=== PATIENT | male | born 1955 | race Caucasian/White ===

== ENCOUNTER → 2020-11-04 14:10 | Outpatient (CLI) | payer OTHER, SELFPAY ==
--- NOTE | 2020-11-04 | DI.US.S_ITS ---
PROCEDURE: US ABD AORTA ANEURYSM SCREEN INDICATIONS: Encounter for other specified special examinations. Aneurysm screening. TECHNIQUE: Real time scanning was performed of the aorta and iliac arteries, with image documentation. COMPARISON: None. FINDINGS: Aorta: Proximal aortic diameter measures 2.4 cm. Mid-aorta measures 2.8 cm. There is a distal abdominal aortic aneurysm seen that measures 6.6 cm AP by 5.5 cm transversely, with a craniocaudal extent of 6.5 cm. 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 Turbulent flow can be seen within the aneurysm. The left common iliac artery measures 1 cm. The postvoid residual is 425 cc. IMPRESSION: Distal abdominal aortic aneurysm measuring 6.6 cm AP. A vascular surgery consultation and CT angiogram are now recommended for further evaluation. An aneurysm is also seen involving the right common iliac artery. Urinary retention, with a postvoid residual of 425 cc. Dictated by: Jay Kothari M.D. on 11/04/2020 at 15:41 Approved by: Jay Kothari M.D. on 11/04/2020 at 15:43
== END ==
PROVIDERS: PCP Internal Medicine; Referring Provider Internal Medicine; Visit Provider Internal Medicine
DX: Z13.6 Encounter for screening for cardiovascular disorders (principal); I71.4 Abdominal aortic aneurysm, without rupture; I72.3 Aneurysm of iliac artery; R33.9 Retention of urine, unspecified
CPT/HCPCS: 76706

== ENCOUNTER → 2023-03-10 12:40 | Outpatient (CLI) | payer OTHER, SELFPAY ==
--- NOTE | 2023-03-10 | DI.CT.S_ITS ---
PROCEDURE: CT ABDOMEN PELVIS WO CON INDICATIONS: Abdominal aortic aneurysm, without rupture TECHNIQUE: Noncontrast 5 mm thick sections acquired from the diaphragms to the symphysis. 5 mm coronal and sagittal reformats were then performed. For radiation dose reduction, the following was used: automated exposure control, adjustment of mA and/or kV according to patient size. COMPARISON: [facility], CT, CT ANGIO CHEST ABDOMEN PELVIS, 04/25/2022, 20:35. [facility], CR, XR CHEST 1 VIEW, 04/25/2022, 19:31. FINDINGS: Image quality: Excellent considering absence of both oral and intravenous contrast ABDOMEN: Lung bases: Lung bases are clear. Heart size is normal. Solid organs: Liver is normal in size. Gallbladder is free of distension or calcified gallstones . Pancreas is normal in contours. Spleen is normal in size. No adrenal nodules. Kidneys are normal in size, without hydronephrosis or nephrolithiasis. Peritoneum and bowel: Unenhanced bowel loops demonstrate normal wall thickness and caliber. No free fluid or air. Nodes and vessels: No retroperitoneal or mesenteric adenopathy by size criteria. Aorta and inferior vena cava are normal in caliber in the suprarenal area, and below the renal arteries again noted is postprocedural change of an aortic endo stent extending to the common iliac arteries bilaterally. No change in morphology of the aneurysm sac is noted, no sign of perianeurysmal fibrosis or aneurysm leak.. Miscellaneous: No ventral hernias. PELVIS: Genitourinary: Bladder wall thickness is normal considering relatively prominent bladder volume, previously the case. Miscellaneous: No inguinal hernias or adenopathy. Bones: No suspicious bony lesions. No vertebral body compression fractures. IMPRESSION: Prior aorto bi-iliac artery endo stent placement without cell changer time that would suggest endo stent leak. Again noted is prominence of the bladder volume, also present on the comparison study from 04/25/22. No urinary tract stone is seen. Dictated by: Davon Sharma M.D. on 03/10/2023 at 13:58 Approved by: Davon Sharma M.D. on 03/10/2023 at 14:04
== END ==
PROVIDERS: PCP Internal Medicine; Referring Provider Internal Medicine; Visit Provider Internal Medicine
DX: I71.40 Abdominal aortic aneurysm, without rupture, unspecified (principal)
CPT/HCPCS: 74176

== ENCOUNTER 2023-08-24 15:26 | Emergency (ER) | payer OTHER, SELFPAY ==
[2023-08-24] VITALS (8 sets, daily range): BP systolic 114–144; BP diastolic 68–82; PULSE 81–94; RESP 15–22; TEMP 37.2; O2SAT 93–98; BMI 31.1
--- NOTE | 2023-08-24 15:56 | ED.NEUROSD ---
HPI - Neuro Symptoms/Deficit General Chief Complaint: Neuro Symptoms/Deficit Stated Complaint: legs are numb Time Seen by Provider: 08/24/23 15:44 Source: patient Mode of arrival: Ambulatory History of Present Illness HPI Narrative: Patient is a 68-year-old male. Does have history of AAA status post repair. Is here for evaluation of transient issues were both of his legs go numb. He states it happened several times a week. Has been going on for the past 3-4 months. He talked with his primary care doctor's office and he was told that if he ever had the symptoms again that he should come to the emergency department. He states that sometimes it will happen when he stands up from sitting. It did happened today. Lasted several minutes and then resolved on its own. He currently does not have any symptoms. No change in his bladder symptoms. He has no belly pain. No change in bowel habits. On Anticoagulants: No Related Data Home Medications Medication Instructions Recorded Confirmed alfuzosin 10 mg tablet,extended 10 mg PO QDAY ##0 06/03/16 release 24 hr chlorthalidone 25 mg tablet 25 mg PO QDAY ##0 06/03/16 cholecalciferol (vitamin D3) 25 1,000 unit PO QDAY ##0 06/03/16 mcg (1,000 unit) tablet (Vitamin D3) multivitamin (Multiple Vitamins 1 tab PO QDAY ##0 06/03/16 tablet) omeprazole magnesium 20 mg 20 mg PO ##0 06/03/16 tablet,delayed release (Prilosec OTC) sildenafil 50 mg tablet (Viagra) 50 mg PO PRN PRN ##0 06/03/16 Allergies Allergy/AdvReac Type Severity Reaction Status Date / Time amoxicillin [AMOXICILLIN] Allergy Unknown Verified 08/24/23 15:39 ampicillin [AMPICILLIN] Allergy Unknown Verified 08/24/23 15:39 aspirin [ASPIRIN] Allergy Unknown Verified 08/24/23 15:39 NSAIDS (Non-Steroidal Allergy Unknown Verified 08/24/23 15:39 Anti-Inflamma [NSAIDS (NON-STEROIDAL ANTI-INFLAMMA] Penicillins [PENICILLINS] Allergy Unknown Verified 08/24/23 15:39 Review of Systems Constitutional Constitutional: Reports system reviewed and no additional complaints, except as documented Gastrointestinal Gastrointestinal: Reports system reviewed and no additional complaints, except as documented Genitourinary Genitourinary: Reports system reviewed and no additional complaints, except as documented Musculoskeletal Musculoskeletal: Reports system reviewed and no additional complaints, except as documented Integumentary/Breasts Skin/Breast: Reports system reviewed and no additional complaints, except as documented Neurologic Neurologic: Reports system reviewed and no additional complaints, except as documented Hematologic/Lymphatic On Anticoagulants: No Patient History Surgical History (Updated 10/10/17 @ 05:36 by Conversion Provider) Status post hernia repair History of carpal tunnel repair Social History Smoking Status: Former smoker Smoking Status: Former smoker alcohol intake frequency: holidays/special occasions only Substance Use Type: does not use Exam Initial Vital Signs Initial Vital Signs: Vital Signs Temperature 99.0 F 08/24/23 15:30 Pulse Rate 93 H 08/24/23 15:30 Respiratory Rate 15 08/24/23 15:30 Blood Pressure 133/82 08/24/23 15:30 Pulse Oximetry 98 08/24/23 15:30 Oxygen Delivery Method Room Air 08/24/23 15:30 HENMT Head: normal to inspection and normocephalic Resp Effort & Inspection: normal respiratory effort Cardio Rate: regular rate GI Inspection: normal to inspection and non-distended Skin General: no rashes or lesions noted Neuro General: patient alert and patient awake Extrem General: normal to inspection Course Orders Ordered: ED Orders 08/24/23 15:41 Complete Blood Count AUTO DIFF Stat Comprehensive Metabolic Panel Stat Lipase Stat 08/24/23 15:56 CT angio abd aorta runoff Stat Vital Signs Vital signs: Vital Signs - 8 hr 08/24/23 15:30 08/24/23 15:35 08/24/23 15:36 Temperature 99.0 F Pulse Rate 93 H 94 H Respiratory Rate 15 Blood Pressure 133/82 133/82 Pulse Oximetry 98 98 Oxygen Delivery Method Room Air 08/24/23 15:36 08/24/23 16:00 08/24/23 16:00 Temperature Pulse Rate 87 90 Respiratory Rate 15 Blood Pressure 119/75 Pulse Oximetry 97 94 Oxygen Delivery Method 08/24/23 16:30 08/24/23 16:30 Temperature Pulse Rate 83 Respiratory Rate 17 Blood Pressure 114/68 Pulse Oximetry 93 Oxygen Delivery Method Room Air MDM - Neuro Symptoms/Deficit Lab Data Attestation: I reviewed the patient's lab results. 08/24/23 15:41 03/14/24 15:41 Labs: Lab Results 08/24/23 Range/Units 15:41 WBC 6.5 (4.5-11.0) X10^3/uL RBC 4.16 L (4.5-5.9) X10^6/uL Hgb 11.6 L (13.5-17.5) g/dL Hct 33.7 L (41-53) % MCV 81.1 (80-100) fL MCH 27.9 (26-34) PG MCHC 34.4 (30-36) % RDW 15.6 H (11.6-14.8) % Plt Count 218 (150-400) X10^3/uL Neut % (Auto) 63.4 (50-75) % Lymph % (Auto) 17.9 L (25-40) % [place] % (Auto) 17.6 H (3-14) % Eos % (Auto) 0.8 L (2-4) % Baso % (Auto) 0.3 (0-2) % Neut # (Auto) 4100 (9805-7706) /uL Lymph # (Auto) 1200 (6573-2294) /uL [place] # (Auto) 1100 H (0-900) /uL Eos # (Auto) 100 (0-450) /uL Baso # (Auto) 0 (0-100) /uL Sodium 138 (137-145) mmol/L Potassium 3.5 (3.4-5.1) mmol/L Chloride 106 (98-107) mmol/L Carbon Dioxide 26 (22-32) mmol/L BUN 20 (9-20) mg/dL Creatinine 0.95 (0.66-1.25) mg/dL Estimated GFR > 60 (>60) mL/min BUN/Creatinine Ratio 21.1 (6-22) Glucose 126 H (80-110) mg/dL Calcium 9.4 (8.4-10.2) mg/dL Total Bilirubin 0.5 (0.2-1.3) mg/dL AST 24 (17-59) IU/L ALT 22 (<50) IU/L Alkaline Phosphatase 82 (38-126) U/L Total Protein 8.5 H (6.3-8.2) g/dL Albumin 3.8 (3.5-5.0) g/dL Globulin 4.7 H (1.7-4.1) g/dL Albumin/Globulin Ratio 0.8 L (1.0-2.8) Lipase 44 (23-300) U/L Imaging Data CT scan - abdomen/pelvis: Radiologist's Impression: PROCEDURE: CT ANGIO ABD AORTA RUNOFF INDICATIONS: hx of AAA with repair now with leg numbness TECHNIQUE: After the administration of intravenous contrast, 2.5 mm sections acquired from T12 to the feet, with optional delayed image acquisition from the knees to the feet. 3-dimensional maximum intensity projection (MIP) coronal and sagittal reformats, and/or 3-dimensional volume rendering reformatting was then performed. For radiation dose reduction, the following was used: automated exposure control. COMPARISON: [facility], CT, CT ANGIO CHEST ABDOMEN PELVIS, 04/25/2022, 20:35. FINDINGS: Image Quality: Suboptimal due to motion artifact. Abdominal aorta: Infrarenal aortic stent, without evidence endoleak (although evaluation is not optimally tailored for endoleak detection). The aortic sac measures 4.3 centimeters, previously 5.0 centimeters in 2021. Splanchnic vessels: Patent without hemodynamically significant stenosis. Right lower extremity: No hemodynamically significant stenosis. Three-vessel runoff. Left lower extremity: No hemodynamically significant stenosis. Three-vessel runoff. Lower Chest: No significant findings. ABDOMEN: Liver: No solid mass. Gallbladder: No radiopaque gallstones or wall thickening. Biliary ducts: No biliary dilation. Pancreas: No ductal dilation. Spleen: Size is within normal limits. Adrenal Glands: No adrenal nodules. Kidneys and Ureters: No hydronephrosis. No solid mass. No complex renal cystic lesion which requires follow up. Stomach and Bowel: Normal colonic caliber, without significant wall thickening. Colonic diverticulosis without evidence of diverticulitis. Peritoneum: No abnormal intraperitoneal fluid. No free air. Ventral Wall: No hernia. Abdominal Nodes: No retroperitoneal or mesenteric adenopathy by size criteria. Vessels: Aorta and inferior vena cava are normal in size. PELVIS: Pelvic Organs: Prostatectomy. Bladder: Significant distension of the urinary bladder. Pelvic Nodes: No enlarged lymph nodes. Miscellaneous: No inguinal hernias are seen. Bones: No aggressive osseous abnormality. Degenerative disc disease. IMPRESSION: Prior EVAR, without complication. No evidence of endoleak. Interval decrease in size of the excluded aortic aneurysm compared with 2021. No hemodynamically significant stenosis of the lower extremities, with three-vessel runoff. Significant distension of the bladder. Urinary bladder retention is a consideration. Prostatectomy. MDM Narrative Medical decision making narrative: Patient is currently asymptomatic. CT scan today shows no acute issues with his AAA or repair. He does have a distended bladder on the CT scan. He states that he frequently will retain urine and then have a large episode of urinating. He does still self cath himself every couple days. Advised that if he does not urinate quite a bit this evening that he should self catheterization. Will discharge home to have him follow-up with primary doctor. He was given return precautions. He expressed understanding and agreement. Discharge Plan Departure Patient Disposition: Home Clinical Impression: Paresthesias Activity Restrictions/Additional Instructions: Recommend that you continue to take all of your medications as directed. Also contact your primary care doctor for a follow-up. Your bladder on the CT scan today does look like it is full of urine. If you do not completely empty her bladder this evening I do recommend that you self catheterization this evening. Return to the emergency department for new symptoms. Prescriptions: No Action chlorthalidone 25 MG tablet 25 mg PO QDAY Qty: 0 sildenafil [Viagra] 50 MG tablet 50 mg PO PRN PRNQty: 0 omeprazole magnesium [Prilosec OTC] 20 MG tablet,delayed release (DR/EC) 20 mg PO Qty: 0 alfuzosin 10 MG tablet extended release 24 hr 10 mg PO QDAY Qty: 0 cholecalciferol (vitamin D3) [Vitamin D3] 1,000 UNIT tablet 1,000 unit PO QDAY Qty: 0 multivitamin [Multiple Vitamins] 1 EACH tablet 1 tab PO QDAY Qty: 0 Referrals: Jolie Helton MD [Primary Care Provider] - Stand Alone Forms: Patient Portal/API
[2023-08-24 16:03] LABS: Add Manual Diff / Slide Review NO; Basophils Absolute Auto 0 /uL (0-100); Basophils Percent Auto 0.3 % (0-2); Eosinophils Absolute Auto 100 /uL (0-450); Eosinophils Percent Auto 0.8 % (2-4); Hematocrit 33.7 % (41-53); Hemoglobin 11.6 g/dL (13.5-17.5); Lymphocytes Absolute Auto 1200 /uL (1100-4500); Lymphocytes Percent Auto 17.9 % (25-40); Mean Corpuscular HGB Conc 34.4 % (30-36); Mean Corpuscular Hemoglobin 27.9 PG (26-34); Mean Corpuscular Volume 81.1 fL (80-100); Monocytes Absolute Auto 1100 /uL (0-900); Monocytes Percent Auto 17.6 % (3-14); Neutrophils Absolute Auto 4100 /uL (1500-7000); Neutrophils Percent Auto 63.4 % (50-75); Platelet Count 218 X10^3/uL (150-400); Red Blood Cell Count 4.16 X10^6/uL (4.5-5.9); Red Cell Distribution Width 15.6 % (11.6-14.8); White Blood Cell Count 6.5 X10^3/uL (4.5-11.0)
[2023-08-24 16:12] LABS: Lipase 44 U/L (23-300)
[2023-08-24 16:14] LABS: Alanine Aminotransferase 22 IU/L (<50); Albumin 3.8 g/dL (3.5-5.0); Albumin Globulin Ratio 0.8 (1.0-2.8); Alkaline Phosphatase 82 U/L (38-126); Aspartate Aminotransferase 24 IU/L (17-59); BUN Creatinine Ratio 21.1 (6-22); Bilirubin Total 0.5 mg/dL (0.2-1.3); Blood Urea Nitrogen 20 mg/dL (9-20); Calcium 9.4 mg/dL (8.4-10.2); Carbon Dioxide 26 mmol/L (22-32); Chloride 106 mmol/L (98-107); Estimated Glomerular Filt Rate > 60 mL/min (>60); Globulin 4.7 g/dL (1.7-4.1); Glucose 126 mg/dL (80-110); HEMOLYSIS < 15 (0-50); Potassium 3.5 mmol/L (3.4-5.1); Sodium 138 mmol/L (137-145); Total Protein 8.5 g/dL (6.3-8.2)
== END 2023-08-24 18:05 | disposition home or self-care (01) ==
PROVIDERS: Emergency Provider Emergency Medicine; PCP Internal Medicine
DX: R20.2 Paresthesia of skin (principal); R79.89 Other specified abnormal findings of blood chemistry
CPT/HCPCS: 36415; 75635; 80053; 83690; 85025; 99284; Q9967

== ENCOUNTER → 2024-03-22 13:58 | Outpatient (CLI) | payer OTHER, SELFPAY ==
--- NOTE | 2024-03-22 14:00 | DI.US.S_ITS ---
PROCEDURE: US ABD AORTA ANEURYSM SCREEN INDICATIONS: SCREENING TECHNIQUE: Real time scanning was performed of the aorta and iliac arteries, with image documentation. COMPARISON: [facility], US, US ABD AORTA ANEURYSM SCREEN, 11/04/2020, 13:44. [facility], CT, CT ANGIO ABD AORTA RUNOFF, 08/24/2023, 16:40. FINDINGS: Aorta: Proximal aortic diameter measures 2 cm. Mid-aorta measures 2.2 cm. There is an aorto bi-iliac stent graft seen, which is patent, with confirmation of patency of both iliac limbs. There is a distal abdominal aortic aneurysm seen, measuring 5.5 cm AP with a width of 4.6 cm and a length of 10.9 cm. Previously, this measured 6.6 x 5.5 x 6.9 cm. Iliac arteries: Right common iliac artery measures 1.3 cm. Left common iliac artery measures 1 cm. IMPRESSION: Patent aorto bi-iliac stent graft. The belk[place]ski aortic sac measures slightly smaller AP compared to the prior ultrasound. Dictated by: Jay Kothari M.D. on 03/22/2024 at 14:10 Approved by: Jay Kothari M.D. on 03/22/2024 at 14:12
== END ==
PROVIDERS: PCP Internal Medicine; Referring Provider Surgery Vascular Surgery; Visit Provider Surgery Vascular Surgery
DX: I71.40 Abdominal aortic aneurysm, without rupture, unspecified (principal); Z95.828 Presence of other vascular implants and grafts
CPT/HCPCS: 76706

== ENCOUNTER 2024-06-24 06:39 | Emergency (ER) | payer OTHER, SELFPAY ==
[2024-06-24] VITALS (7 sets, daily range): BP systolic 117–127; BP diastolic 68–85; PULSE 64–81; RESP 16–22; TEMP 36.6–36.9; O2SAT 94–98; BMI 29.7
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
--- NOTE | 2024-06-24 07:11 | DI.RAD.S_ITS ---
PROCEDURE: XR CHEST 1V INDICATIONS: weakness TECHNIQUE: One view of the chest was acquired. COMPARISON: None. FINDINGS: Surgical changes and devices: None. Lungs and pleura: Minimal left basilar atelectasis. Lungs are otherwise clear. No pleural effusions or pneumothorax. Mediastinum: Mediastinal contours appear normal. Heart size is normal. Bones and chest wall: No suspicious bony lesions. 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 Overlying soft tissues appear unremarkable. IMPRESSION: No acute cardiopulmonary abnormality is seen. Dictated by: Azael Florentino M.D. on 06/24/2024 at 8:43 Approved by: Azael Florentino M.D. on 06/24/2024 at 8:47
--- NOTE | 2024-06-24 07:22 | EKG_ITS ---
[place] [id number] [place] [id number] Test Date: 2024-06-24 Pat Name: Denis Barker Department: [facility] Room: Gender: Male Policy Advisor: RE : 1955 Requested By: Order Number: [id number] Reading MD: Wilbert Dalton MD Measurements Intervals Martin Rate: 66 P: 41 TN: 150 QRS: -5 QRSD: 96 T: 13 QT: 402 QTc: 421 Interpretive Statements Normal sinus rhythm Possible Inferior infarct , age undetermined Electronically Signed On 06-24-2024 7:35:56 PST by Wilbert Dalton MD
[2024-06-24 07:30] LABS: Add Manual Diff / Slide Review NO; Basophils Absolute Auto 0 /uL (0-100); Basophils Percent Auto 0.4 % (0-2); Eosinophils Absolute Auto 0 /uL (0-450); Eosinophils Percent Auto 0.5 % (2-4); Hematocrit 35.2 % (41-53); Hemoglobin 11.9 g/dL (13.5-17.5); Lymphocytes Absolute Auto 1000 /uL (1100-4500); Lymphocytes Percent Auto 17.2 % (25-40); Mean Corpuscular HGB Conc 33.8 % (30-36); Mean Corpuscular Hemoglobin 27.7 PG (26-34); Mean Corpuscular Volume 82.1 fL (80-100); Monocytes Absolute Auto 1200 /uL (0-900); Monocytes Percent Auto 19.9 % (3-14); Neutrophils Absolute Auto 3600 /uL (1500-7000); Platelet Count 218 X10^3/uL (150-400); Red Blood Cell Count 4.28 X10^6/uL (4.5-5.9); Red Cell Distribution Width 16.1 % (11.6-14.8); White Blood Cell Count 5.8 X10^3/uL (4.5-11.0)
[2024-06-24 07:40] LABS: Albumin 3.9 g/dL (3.5-5.0); Albumin Globulin Ratio 0.9 (1.0-2.8); Alkaline Phosphatase 77 U/L (38-126); Aspartate Aminotransferase 21 IU/L (17-59); BUN Creatinine Ratio 18.5 (6-22); Bilirubin Total 0.5 mg/dL (0.2-1.3); Blood Urea Nitrogen 20 mg/dL (9-20); Calcium 9.1 mg/dL (8.4-10.2); Carbon Dioxide 29 mmol/L (22-32); Chloride 103 mmol/L (98-107); Creatine Kinase 61 U/L (55-170); Estimated Glomerular Filt Rate > 60 mL/min (>60); Globulin 4.5 g/dL (1.7-4.1); Glucose 129 mg/dL (80-110); HEMOLYSIS < 15 (0-50); Lipase 27 U/L (23-300); Potassium 3.7 mmol/L (3.4-5.1); Sodium 137 mmol/L (137-145); Total Protein 8.4 g/dL (6.3-8.2)
[2024-06-24 07:41] LABS: Alanine Aminotransferase 23 IU/L (<50)
[2024-06-24 07:52] LABS: Troponin I < 0.012 ng/mL (0.01-0.034)
[2024-06-24 08:33] LABS: Appearance Urine UA CLOUDY; Bilirubin Urine UA NEGATIVE (NEGATIVE); Color Urine UA YELLOW; Glucose Urine UA NEGATIVE (Negative); Ketones Urine UA NEGATIVE (NEGATIVE); Leukocyte Esterase Urine UA 3+ (NEGATIVE); Nitrite Urine UA NEGATIVE (Negative); Occult Blood Urine UA 3+ (Negative); Protein Urine UA NEGATIVE (Negative); Specific Gravity Urine UA 1.015 (1.000-1.035)
[2024-06-24 08:34] LABS: Urine Volume 10mL (spun)
[2024-06-24 08:37] LABS: Bacteria Urine None Seen; Culture Indicated Urine Specimen Cultured; RBC Urine 10-30/HPF (0-5/HPF); Squamous Epithelial Cell Urine None Seen (0-5/HPF); WBC Urine 10-30/HPF (0-5/HPF)
== END 2024-06-24 09:45 | disposition home or self-care (01) ==
PROVIDERS: Emergency Provider Emergency Medicine; PCP Internal Medicine
DX: M62.81 Muscle weakness (generalized) (principal)
CPT/HCPCS: 71045; 80053; 81001; 82550; 83690; 84484; 85025; 87077; 87086; 93005; 99283; 99284

== ENCOUNTER 2024-08-08 01:20 | Emergency (ER) | payer OTHER, SELFPAY ==
[2024-08-08 01:35] VITALS: BP 124/71; PULSE 71; RESP 16; TEMP 36.6; O2SAT 97; BMI 28.8
--- NOTE | 2024-08-08 02:03 | ED_ITS ---
HPI - General Adult General Chief complaint: Urogenital-Male Stated complaint: CATH ISSUES Time Seen by Provider: 08/08/24 01:39 Source: patient Mode of arrival: Ambulatory History of Present Illness HPI narrative: 69-year-old gentleman who has a history of hypertension and does self- catheterizations is noting that the most [facility] not seem to be effectively draining his bladder. He is having signs of increasing urinary retention and comes in for further evaluation. the most recently received catheters are significantly more flexible than the previous ones. He feels that there is a single spot where they seemed to get stuck. He is post prostatectomy. I suspect that he is developing stricture. He was treated with antibiotics 2 weeks ago. Currently no fevers and not complaining of significant dysuria Related Data Home Medications Medication Instructions Recorded Confirmed alfuzosin 10 mg tablet,extended 10 mg PO QDAY ##0 06/03/16 08/08/24 release 24 hr chlorthalidone 25 mg tablet 25 mg PO QDAY ##0 06/03/16 08/08/24 cholecalciferol (vitamin D3) 25 1,000 unit PO QDAY ##0 06/03/16 08/08/24 mcg (1,000 unit) tablet (Vitamin D3) multivitamin (Multiple Vitamins 1 tab PO QDAY ##0 06/03/16 08/08/24 tablet) omeprazole magnesium 20 mg 20 mg PO DAILY ##0 06/03/16 08/08/24 tablet,delayed release (Prilosec OTC) sildenafil 50 mg tablet (Viagra) 50 mg PO PRN PRN Erectile 06/03/16 08/08/24 Dysfunction ##0 melatonin 5 mg tablet 5 mg PO BEDTIME 08/08/24 08/08/24 Allergies Allergy/AdvReac Type Severity Reaction Status Date / Time amoxicillin [AMOXICILLIN] Allergy Unknown Verified 08/24/23 15:39 ampicillin [AMPICILLIN] Allergy Unknown Verified 08/24/23 15:39 aspirin [ASPIRIN] Allergy Unknown Verified 08/24/23 15:39 NSAIDS (Non-Steroidal Allergy Unknown Verified 08/24/23 15:39 Anti-Inflamma [NSAIDS (NON-STEROIDAL ANTI-INFLAMMA] Penicillins [PENICILLINS] Allergy Unknown Verified 08/24/23 15:39 Review of Systems Review of Systems Narrative: Pertinent positive and negative findings as per HPI Patient History Surgical History (Updated 08/08/24 @ 02:43 by Claudine Humphreys MD) H/O prostatectomy Status post hernia repair History of carpal tunnel repair Social History Smoking Status: Former smoker Smoking Status: Former smoker alcohol intake frequency: holidays/special occasions only Exam Initial Vital Signs Initial Vital Signs: Vital Signs Temperature 98 F 08/08/24 01:35 Pulse Rate 71 08/08/24 01:35 Respiratory Rate 16 08/08/24 01:35 Blood Pressure 124/71 08/08/24 01:35 Pulse Oximetry 97 08/08/24 01:35 Oxygen Delivery Method Room Air 08/08/24 01:35 General: Alert appropriate in no acute distress Respiratory: Able to speak in full sentences, no obvious respiratory distress Skin: No obvious rashes, warm and dry Neurologic: Grossly intact no obvious asymmetries or abnormalities Psych: appropriate insight and affect, cooperative Escalante catheter was placed, greater than 1 L of clear urine was returned Course Vital Signs Vital signs: Vital Signs - 8 hr 08/08/24 01:35 Temperature 98 F Pulse Rate 71 Respiratory Rate 16 Blood Pressure 124/71 Pulse Oximetry 97 Oxygen Delivery Method Room Air Medical Decision Making MDM Narrative Medical decision making narrative: 69-year-old gentleman followed at the [facility]. History of prostatectomy, self caths has noticed increasing difficulty just prior to entering the bladder. Been having success with previous catheters that were a bit more stiff than the more flexible red rubber catheters that he has recently relieved. Significant irritation with using the red rubber catheters with a urinary tract infection noted 2 weeks ago. He is concerned that he is not completely draining his bladder. Bladder scan shows greater than a L and Escalante catheter is placed with bladder draining over a L of clear urine. Urine will be cultured but he has not started on antibiotics today. He is sent home with both a leg bag at a regular Escalante catheter bag. Suggested that he follow up with his urologist at the [facility] to talk about the probable developing stricture at the bladder neck as well as need for catheter supplies that he is able to use. There is no indication for hospitalization today he is safe for discharge Discharge Plan Departure Patient Disposition: Home Clinical Impression: Acute urinary retention, Bladder neck stricture Instructions: DI for Urinary Retention in Men Activity Restrictions/Additional Instructions: thank you for coming in tonight you had over a L of urine in your bladder. We placed a Escalante catheter without any difficulty. We have given you a regular catheter bag as well as a leg bag to use at home please talk to your urologist at the [facility] tomorrow so that you are able to get the intermittent catheter supplies that are actually helpful for you. Please mentioned to him that you are having increasing difficulty getting into the bladder. I suspect that you are developing a bladder neck stricture and those can sometimes be dilated in the office we did culture your urine, if it returns showing a bladder infection, we will contact you with a prescription for antibiotics If you find that you are getting worse or develop any new symptoms, please feel free to return to the emergency department for further evaluation. Prescriptions: No Action chlorthalidone 25 MG tablet 25 mg PO QDAY Qty: 0 sildenafil [Viagra] 50 MG tablet 50 mg PO PRN PRN (Reason: Erectile Dysfunction) Qty: 0 omeprazole magnesium [Prilosec OTC] 20 MG tablet,delayed release (DR/EC) 20 mg PO DAILY Qty: 0 alfuzosin 10 MG tablet extended release 24 hr 10 mg PO QDAY Qty: 0 cholecalciferol (vitamin D3) [Vitamin D3] 1,000 UNIT tablet 1,000 unit PO QDAY Qty: 0 multivitamin [Multiple Vitamins] 1 EACH tablet 1 tab PO QDAY Qty: 0 melatonin 5 mg Tablet 5 mg PO BEDTIME Referrals: Jolie Helton MD [Primary Care Provider] - Stand Alone Forms: Patient Portal/API/Survey
--- NOTE | 2024-08-08 02:46 | PC.NURSE ---
Pt states that he has attempted multiple times to self cath without success.
[2024-08-08 02:58] VITALS: BP 118/72; PULSE 64; RESP 16; O2SAT 97
[2024-08-08 03:17] LABS: Amorphous Sediment Urine 1+; Bacteria Urine Occasional (0-1); Culture Indicated Urine Cult Not Indicated; RBC Urine 1-5/HPF (0-5/HPF); Squamous Epithelial Cell Urine 0-1 /HPF (0-5/HPF); Urine Volume 10mL (spun); WBC Urine None Seen (0-5/HPF)
== END 2024-08-08 02:59 | disposition home or self-care (01) ==
PROVIDERS: Emergency Provider Emergency Medicine; PCP Internal Medicine
DX: R33.9 Retention of urine, unspecified (principal); N32.0 Bladder-neck obstruction
CPT/HCPCS: 51702; 51798; 81003; 81015; 87086; 99283

== ENCOUNTER 2024-08-13 22:00 | Emergency (ER) | payer OTHER, SELFPAY ==
[2024-08-13 22:11] VITALS: BP 124/72; PULSE 72; RESP 18; TEMP 37.1; O2SAT 97; BMI 27.9
[2024-08-13 23:59] VITALS: BP 115/71; PULSE 74; RESP 17; O2SAT 98
== END 2024-08-14 00:01 | disposition left against medical advice (07) ==
PROVIDERS: Emergency Provider Emergency Medicine; PCP Internal Medicine
CPT/HCPCS: 99281

== ENCOUNTER → 2024-08-28 14:58 | Outpatient (CLI) | payer OTHER, SELFPAY | PROVIDERS: PCP Internal Medicine; Visit Provider Urology | DX: R31.21 Asymptomatic microscopic hematuria (principal); Z85.46 Personal history of malignant neoplasm of prostate | CPT/HCPCS: 87077; 87086; 87186 ==

== ENCOUNTER → 2024-09-11 15:42 | Outpatient (CLI) | payer OTHER, SELFPAY | PROVIDERS: PCP Internal Medicine; Visit Provider Urology | DX: R31.21 Asymptomatic microscopic hematuria (principal); R33.9 Retention of urine, unspecified; Z87.438 Personal history of other diseases of male genital organs | CPT/HCPCS: 51798; 52000; 81002; 87086 ==

== ENCOUNTER → 2024-11-29 10:24 | Outpatient (CLI) | payer OTHER, SELFPAY ==
[2024-11-29 12:26] LABS: Prostate Specific Antigen < 0.064 ng/mL (0.10-4.00)
== END ==
PROVIDERS: PCP Internal Medicine; Referring Provider Urology; Visit Provider Urology
DX: Z85.46 Personal history of malignant neoplasm of prostate (principal)
CPT/HCPCS: 36415; 84153